=== PATIENT | female | born 1970 | race African-American/Black ===

== ENCOUNTER 2019-01-08 18:21 | Emergency (ER) | payer OTHER | END 2019-01-08 19:46 | disposition home or self-care (01) | LOC: FER 18:21 ==

== ENCOUNTER 2019-01-31 09:04 | Day surgery (SDC) | payer OTHER ==
[2019-01-30 17:50] VITALS: BMI 29.2
--- NOTE | 2019-01-31 09:58 | HP ---
[facility] - Chief Complaint Chief Complaint: This patient is admitted to treat irregular uterine bleeding and to remove uterine polyps. History of Present Illness: This patient recently experienced irregular uterine bleeding and on sonogram was noted to have uterine polyps. History Source: Patient Limitations to Obtaining History: No Limitations - Past Medical History Allergies/Adverse Reactions: Allergies Allergy/AdvReac Type Severity Reaction Status Date / Time No Known Allergies Allergy Verified 01/30/19 17:51 MANUFACTURING ENGINEERING DIRECTOR: Yes: Migraine Cardiovascular: No: AFIB, Aneurysm, Aortic Insufficiency, Aortic Stenosis, CAD, CHF, Deep Vein Thrombosis, HTN, Hyperlipdemia, LA, Mitral Insufficiency, Mitral Stenosis, Murmur, Pulmonary Hypertension, Other Pulmonary: No: Asthma, Bronchitis, Cancer, COPD, O2 Dependent, Pneumonia, Previously Intubated, Pulmonary Embolus, Pulmonary Fibrosis, Sleep Apnea, Other Gastrointestinal: Yes: Gastritis, GERD Hepatobiliary: No: Cirrhosis, Cholelithiasis, Cholecystitis, Choledocholithiasis , Hepatitis A, Hepatitis B, Hepatitis C, Other Renal/: No: Renal Failure, Renal Inusuff, BPH, Cancer, Hematuria, Hemodialysis , Neurogenic Bladder, Renal Calculi, UTI, Other ...LMP: 01/08/19 ...LMP Comment: IRREGULAR ...: No ...: 4 ...Para: 4 Heme/Onc: No: Anemia, B12 Deficiency, Bleeding Disorder, Cancer, Current Chemotherapy, Current Radiation Therapy, Hemochromatosis, Hypercoaguable State, Myeloproliferative Synd, Sickle Cell Disease, Sickle Cell Trait, Thrombocytopenia, Other Infectious Disease: No: AIDS, C-Diff, Herpes Zoster, HIV, MRSA, STD's, Tuberculosis, VREF, Other Musculoskeletal: No: Bursitis, Chronic low back pain, Hemiparesis, Hemiplegia, Osteoarthritis, Paraplegia, Other Rheumatology: No: Fibromyalgia, Gout, Lupus, Rheumatoid Arthritis, Sarcoidosis, Vasculitis, Other ENT: No: Allergic Rhinitis, Sinusitis, Other Endocrine: No: Warren's Disease, [place]'s Disease, Diabetes Insipidus, Diabetes Mellitus, Hyperparathyroidism, Hyperthyroidism, Hypothyroidism, Osteopenia, SIADH, Other Dermatology: No: Basal Cell, Cellulitis, Eczema, Melanoma, Psoriasis, Squamous Cell, Other (post BTL hx of uterine fibroids) - Current Medications Current Medications: Home Medications Medication Instructions Recorded Omeprazole [Prilosec] 20 mg PO PRN PRN 02/15/15 Satellite Physical Exam - Physical Examination General Appearance: Well Nourished, Well Developed, Alert & Oriented x3 ENT: Clear, No Discharge, No masses Lung: Clear to auscultation Heart: Regular rate & rhythm, Normal S1, Normal S2 Breasts: Soft, Non-Tender, No masses bilaterally Abdomen: Soft, No tenderness, No CVA Extremities: No edema, No tenderness/swelling Pelvic Exam: Within normal limits External Genitalia, Within normal limits Vagina, Within normal limits Cervix, Within normal limits Uterus, Within normal limits [place] Neu[facility]: Intact, Alert, Oriented Satellite Impression/Plan - Impression/Plan Impression: uterine polyps and irregular uterine bleeding Operative Procedure: hysteroscopy with D/C and polypectomy Date to be Performed: 01/31/19
[2019-01-31] MEDS ORDERED: ONDANSETRON 4 MG/2 ML VIAL IVPUSH PRN (10:05)
[2019-01-31] MEDS ORDERED: oxyCODONE HCL 5 MG TABLET PO PRN ×2 (10:05)
[2019-01-31] MEDS ORDERED: LACTATED RINGERS SOLUTION 1,000 ML IV SCH (10:15)
[2019-01-31] MEDS ORDERED: PROPOFOL 20 ML ONE (11:28)
[2019-01-31] MEDS ORDERED: MIDAZOLAM HCL 2 MG/2 ML SINGLE DOSE VIAL ONE (11:28)
[2019-01-31] MEDS ORDERED: KETOROLAC TROMETHAMINE 30 MG/1 ML VIAL ONE (11:57)
[2019-01-31] MEDS ORDERED: DEXAMETHASONE SOD PHOSPHATE 4 MG/1 ML VIAL ONE (11:57)
[2019-01-31] MEDS ORDERED: LIDOCAINE HCL/PF 2% SDV 5ML VIAL ONE (11:57)
--- NOTE | 2019-01-31 13:30 | OP ---
DATE OF OPERATION: 01/31/2019 PREOPERATIVE DIAGNOSES: Uterine polyps and irregular uterine bleeding. POSTOPERATIVE DIAGNOSES: Uterine polyps and irregular uterine bleeding. OPERATIVE PROCEDURE: Hysteroscopy, dilation and curettage, polypectomy. ESTIMATED BLOOD LOSS: Approximately 10 mL. DESCRIPTION OF PROCEDURE: The patient was brought to the operating room, placed in the supine position, given MAC anesthesia by the anesthesiologist, placed in the lithotomy position, prepped and draped in the usual manner. The uterus was noted to be retroverted. Adnexa negative. The uterus was slightly enlarged. The uterus was dilated to 9 cm. The cervix was then dilated to accommodate the hysteroscopy. Hysteroscopy was performed using the hysteroscope and the patient was noted to have endometrial polyps on the right fundal wall. The polyps were removed using a medium-sized curet. A D & C was also carried out of the endometrial cavity and an endocervical curettage was also done. The patient tolerated the procedure well. Hemostasis was good. The estimated blood loss was 10 mL. The patient went to the recovery room in good condition. AMBROSE NOLAN M.D. [id number]
[2019-01-31 15:06] VITALS: BP 128/75; PULSE 88
[2019-01-31 21:03] VITALS: TEMP 98.3
--- NOTE | 2019-02-02 11:37 | PATH ---
Surgical Pathology Report Patient Name: NATHALIA SOSA [facility]. Rec. #: [id number] /Age/Gender: 1970 (Age: 48) / F Account: [id number] Location: [facility] SURGICAL Taken: 01/31/2019 Received: 01/31/2019 Reported: 02/02/2019 Physicians: Armen Worley M.D. Specimen(s) Received A: ENDOMETRIAL CURETTINGS B: ENDOCERVICAL POLYP C: ENDOCERVICAL CURETTINGS Clinical History Irregular bleeding, uterine polyps Final Diagnosis A. ENDOMETRIUM, CURETTAGE: SECRETORY ENDOMETRIUM AND FRAGMENTS OF ENDOMETRIAL POLYP. BENIGN SQUAMOUS EPITHELIUM AND ENDOCERVICAL GLANDULAR TISSUE. B. ENDOMETRIUM, POLYP, POLYPECTOMY: ENDOMETRIAL POLYP AND SECRETORY ENDOMETRIUM. C. ENDOCERVIX, CURETTAGE: FRAGMENTS OF ENDOMETRIAL POLYP AND SCANT BENIGN ENDOCERVICAL GLANDULAR TISSUE. Electronically Signed Fabi Mack M.D. Gross Description A. Received in formalin labeled "endometrial curettings," is a 3.5 x 3.0 x 0.3 cm aggregate of red-brown soft tissue fragments admixed with blood clot. The formalin is filtered and the specimen is entirely submitted in 2 cassettes. B. Received in formalin labeled "endometrial polyp," is a 2.5 x 2.0 x 0.3 cm aggregate of barrientos pink soft tissue fragments. The formalin is filtered and the specimen is entirely submitted in one cassette. C. Received in formalin labeled "endocervical curettings," is a 0.5 x 0.3 x 0.1 cm aggregate of barrientos soft tissue fragments. The formalin is filtered and the specimen is entirely submitted in one cassette. /01/31/2019 [facility]01/31/2019
== END 2019-01-31 15:08 | disposition home or self-care (01) ==
LOC: JASU-SURG 09:04
PROVIDERS: ATTEND Obstetrics & Gynecology
PROC: 0UJD8ZZ Inspection of Uterus and Cervix, Via Natural or Artificial Opening Endoscopic (ICD-10-PCS; 2019-01-31)
PROC: 0UB97ZX Excision of Uterus, Via Natural or Artificial Opening, Diagnostic (ICD-10-PCS; principal; 2019-01-31 09:00)
PROC: 0UDB7ZX Extraction of Endometrium, Via Natural or Artificial Opening, Diagnostic (ICD-10-PCS; 2019-01-31 09:00)
DX: N93.9 Abnormal uterine and vaginal bleeding, unspecified (principal); N84.0 Polyp of corpus uteri
CPT/HCPCS: 36415; 84703; 86850; 86870; 86900; 86901; 86902; 88305-TC; 94760

== ENCOUNTER 2020-04-07 16:04 | Emergency (ER) | payer OTHER ==
--- NOTE | 2020-04-07 16:11 | PDOC ---
History of Present Illness - General Chief Complaint: Headache Stated Complaint: "SEVERE HEADACHE" Time Seen by Provider: 04/07/20 16:11 - History of Present Illness Initial Comments: HPI: 50yo F with PMH of migraines, GI ulcer sent by her primary care physician for evaluation of migraine x 1 day. Patient states her current headache feels like her usual headaches. Denies syncope or fall. Reports photosensitivity. Took three advil around 11am today with some relief, as headache is now rated 5/10. Used to follow with a neurologist, but not recently. Does not currently take any medications for her headache, but her primary care provider sent new prescriptions to her pharmacy. Patient does not know the name of these medicati ons. Stated she felt somewhat weak prior to this headache episode which she says she has felt previously when her "iron was low." No fevers, chills, chest pain, or shortness of breath. PCP: Dr. Irish Ibarra ROS: Constitutional: no fever, no chills HEENT: no throat pain, no dysphagia Cardiovascular: no chest pain, no palpitations Respiratory: no cough, no shortness of breath Gastrointestinal: no abdominal pain, no nausea Genitourinary: no dysuria, no hematuria Musculoskeletal: no myalgia, no arthralgia Skin: no rash, no itching Neurologic: +headache, +weakness Psych: no agitation, no anxiety PE: General: Awake, alert, and fully oriented, in no acute distress, has towel over her eyes Head: No signs of trauma Eyes: Sclera anicteric ENT: Moist mucus membranes Neck: Normal ROM, supple Lungs: Lungs clear, Normal breath sounds Cardio: Regular rhythm, S1 and S2 present Abdomen: Soft, nontender. No guarding, no rebound, no masses Extremities: Normal range of motion, Distal pulses present Skin: Warm, Dry, normal turgor Neurologic: Cranial nerves II through XII intact. Normal speech, sensation, strength, coordination, and gait. ED Course/MDM: DDX including but not limited to tension headache, ocular migraine, cluster headache, SAH, IIH, temporal arteritis Labs Fluids Reglan Ofirmev As patient states this is her usual pattern of headache and "this is how it always is," I have lowered suspicion for acute neurologic pathology Via shared decision making, patient declined CT Head Will reassess 04/07/20 16:11 CBC WBC 6.7 K/mm3 (4.0-10.8) 04/07/20 17:00 RBC 4.10 M/mm3 (3.60-5.2) 04/07/20 17:00 Hgb 10.8 GM/dl (10.7-15.3) 04/07/20 17:00 Hct 34.1 % (32.4-45.2) 04/07/20 17:00 MCV 83.1 fl (80-96) 04/07/20 17:00 MCH 26.4 pg (25.7-33.7) 04/07/20 17:00 MCHC 31.8 g/dl (32.0-36.0) L 04/07/20 17:00 RDW 15.8 % (11.6-15.6) H 04/07/20 17:00 Plt Count 376 K/MM3 (134-434) 04/07/20 17:00 MPV 8.4 fl (7.5-11.1) 04/07/20 17:00 Absolute Neuts (auto) 4.6 K/mm3 04/07/20 17:00 Neutrophils % 69.1 % (42.8-82.8) 04/07/20 17:00 Lymphocytes % 21.3 % (8-40) 04/07/20 17:00 Monocytes % 7.4 % (3.8-10.2) 04/07/20 17:00 Eosinophils % 1.1 % (0-4.5) 04/07/20 17:00 Basophils % 1.1 % (0-2.0) 04/07/20 17:00 No leukocytosis or anemia CMP Sodium 137 mmol/L (136-145) 04/07/20 17:00 Potassium 4.1 mmol/L (3.5-5.1) 04/07/20 17:00 Chloride 105 mmol/L (98-107) 04/07/20 17:00 Carbon Dioxide 24 mmol/L (21-32) 04/07/20 17:00 Anion Gap 8 MMOL/L (8-16) 04/07/20 17:00 BUN 15.0 mg/dl (7-18) 04/07/20 17:00 Creatinine 0.7 mg/dl (0.55-1.3) 04/07/20 17:00 Est GFR (CKD-EPI)AfAm 116.27 04/07/20 17:00 Est GFR (CKD-EPI)NonAf 100.32 04/07/20 17:00 Random Glucose 95 mg/dl (74-106) 04/07/20 17:00 Calcium 8.3 mg/dl (8.5-10) L 04/07/20 17:00 Total Bilirubin 0.3 mg/dl (0.2-1) 04/07/20 17:00 AST 26 U/L (15-37) 04/07/20 17:00 ALT 31 U/L (13-61) 04/07/20 17:00 Alkaline Phosphatase 80 U/L (45-117) 04/07/20 17:00 Total Protein 7.0 g/dl (6.4-8.2) 04/07/20 17:00 Albumin 3.8 g/dl (3.4-5.0) 04/07/20 17:00 Electrolytes unremarkable Normal Cr No transaminitis 04/07/20 18:16 Patient with improvement in headache Already has a neurology referral Her primary care physician sent prescriptions to her pharmacy 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 Return precautions Stable for discharge 04/07/20 18:50 Past History - Medical History Allergies/Adverse Reactions: Allergies Allergy/AdvReac Type Severity Reaction Status Date / Time No Known Allergies Allergy Verified 04/07/20 16:10 Home Medications: Ambulatory Orders Omeprazole [Prilosec] 20 mg PO PRN PRN 02/15/15 Anemia: No Asthma: No Cancer: No Cardiac Disorders: No CVA: No COPD: No CHF: No Dementia: No Diabetes: No GI Disorders: Yes (gastric ulcers) Disorders: No HTN: No Hypercholesterolemia: No Liver Disease: No Seizures: No Thyroid Disease: No - Surgical History Abdominal Surgery: No Appendectomy: Yes (EGD) Cardiac Surgery: No Cholecystectomy: No Lung Surgery: No Neurologic Surgery: No Orthopedic Surgery: No - Psycho-Social/Smoking History Smoking History: Current some day smoker Have you smoked in the past 12 months: Yes Number of Cigarettes Smoked Daily: 3 'Breaking Loose' booklet given: 01/08/19 ED Treatment Course - LABORATORY CBC & Chemistry Diagram: 04/07/20 17:00 04/07/20 17:00 Discharge - Discharge Information Problems reviewed: Yes Clinical Impression/Diagnosis: Migraine Qualifiers: Migraine type: unspecified Status migrainosus presence: without status migrainosus Intractability: not intractable Qualified Code(s): G43.909 - Migraine, unspecified, not intractable, without status migrainosus Condition: Stable - Follow up/Referral - Patient Discharge Instructions Patient Printed Discharge Instructions: DI for Migraine Additional Instructions: You came to the emergency department for a headache. Labs did not show acute pathology. You received medications while you were here which helped your headache improve. 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 You can also take [id number] tylenol for pain. Follow the instructions on the medication bottle. Make sure you do not take too much medicine. The maximum daily dose for tylenol is 4000mg/day. Your doctor already referred you to a neurologist. Call and make an appointment. Your care is not complete until you do so. Medical attention is required if: you experience persistent symptoms, worsening headache, have a seizure, or have focal numbness or weakness. If you think you are having an emergency, call for emergency medical services or present to the emergency department right away - Post Discharge Activity
[2020-04-07 16:20] VITALS: TEMP 98.1; BMI 29.8
[2020-04-07] MEDS ORDERED: METOCLOPRAMIDE HCL INJECTION 10 MG/2 ML VIAL IVPUSH ONE (16:36)
[2020-04-07] MEDS ORDERED: SODIUM CHLORIDE 1,000 ML IV STA (16:36)
[2020-04-07] MEDS ORDERED: ACETAMINOPHEN 1000 MG/100 ML VIAL (NON FORMULARY) IVPB ONE (16:37)
[2020-04-07] MEDS ORDERED: ACETAMINOPHEN INJECTION 100 ML IVPB ONE (16:40)
[2020-04-07] MEDS ORDERED: METOCLOPRAMIDE HCL INJECTION 10 MG/2 ML VIAL ONE (16:40)
--- NOTE | 2020-04-07 16:43 | PDOC ---
Attending Attestation - Resident Resident Name: Roger Arellanoth - ED Attending Attestation I have performed the following: I have examined & evaluated the patient, The case was reviewed & discussed with the resident, I agree w/resident's findings & plan, Exceptions are as noted - HPI HPI: 04/07/20 16:51 50y F hx of migraine headaches, ulcers, presents with complaint of headache x 2 days. Pts headache was gradual onset x 2 days, pounding, associated with photophobia and nbnb vomiting. Pt notes this is consistent with her prior migraine headaches, she use to get relief with motrin hwever she was taken off of it by her GI doctor due to ulcers. Pt denies any blurry/double vision, fever/chills, focal numbness/tingling/weakness. pt unclear of the triggers for her headache. denies any other complaints including cp, sob, abd pain, back pa ni, neck pain, mcmanus. - Physicial Exam PE: 04/07/20 17:20 exam: GENERAL: The patient is awake, alert, and fully oriented, Nontoxic - in no acute distress. HEAD: Normocephalic, atraumatic. NEUROLOGICAL: No facial assymetry, Normal speech, moving all 4 extremiteis spontaneously and symmetrically - Medical Decision Making 04/07/20 17:20 migraine headache, consistet with prior no concern for SAH as pt ntose h/a is exactly the same will treat supportively neuro intact will reassess 04/07/20 18:27 pt feeling improved will dc with outpatient fu return precautions were dsicused Discharge - Discharge Information Problems reviewed: Yes Clinical Impression/Diagnosis: Migraine Qualifiers: Migraine type: unspecified Status migrainosus presence: without status migrainosus Intractability: not intractable Qualified Code(s): G43.909 - Migraine, unspecified, not intractable, without status migrainosus Condition: Stable Disposition: HOME - Admission No - Follow up/Referral - Patient Discharge Instructions Patient Printed Discharge Instructions: DI for Migraine Additional Instructions: You came to the emergency department for a headache. Labs did not show acute pa thology. You received medications while you were here which helped your headache improve. 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 You can also take [id number] tylenol for pain. Follow the instructions on the medication bottle. Make sure you do not take too much medicine. The maximum daily dose for tylenol is 4000mg/day. Your doctor already referred you to a neurologist. Call and make an appointment. Your care is not complete until you do so. Medical attention is required if: you experience persistent symptoms, worsening headache, have a seizure, or have focal numbness or weakness. If you think you are having an emergency, call for emergency medical services or present to the emergency department right away - Post Discharge Activity
[2020-04-07 17:16] LABS: BASO % 1.1 % (0-2.0); EOS % 1.1 % (0-4.5); HEMATOCRIT 34.1 % (32.4-45.2); HEMOGLOBIN 10.8 GM/dl (10.7-15.3); LYMPH % 21.3 % (8-40); MCH 26.4 pg (25.7-33.7); MCHC 31.8 g/dl (32.0-36.0); MEAN CELL VOLUME 83.1 fl (80-96); MEAN PLT VOLUME 8.4 fl (7.5-11.1); MONO % 7.4 % (3.8-10.2); NEUT % 69.1 % (42.8-82.8); PLATELET COUNT 376 K/MM3 (134-434); RDW 15.8 % (11.6-15.6); WHITE BLOOD COUNT 6.7 K/mm3 (4.0-10.8)
[2020-04-07 17:20] LABS: ALBUMIN 3.8 g/dl (3.4-5.0); BILIRUBIN,TOTAL 0.3 mg/dl (0.2-1); CALCIUM 8.3 mg/dl (8.5-10); CREATININE 0.7 mg/dl (0.55-1.3); POTASSIUM 4.1 mmol/L (3.5-5.1)
[2020-04-07 18:35] VITALS: BP 127/87; PULSE 79
== END 2020-04-07 18:35 | disposition home or self-care (01) ==
LOC: FER 16:04
PROC: 3E0333Z Introduction of Anti-inflammatory into Peripheral Vein, Percutaneous Approach (ICD-10-PCS; principal; 2020-04-07)
PROC: 3E033GC Introduction of Other Therapeutic Substance into Peripheral Vein, Percutaneous Approach (ICD-10-PCS; 2020-04-07)
PROC: 3E0337Z Introduction of Electrolytic and Water Balance Substance into Peripheral Vein, Percutaneous Approach (ICD-10-PCS; 2020-04-07)
DX: G43.909 Migraine, unspecified, not intractable, without status migrainosus (principal)
CPT/HCPCS: 36415; 80053; 85025; 99284-25; J0131

== ENCOUNTER 2023-01-31 11:24 | Emergency (ER) | payer OTHER ==
[2023-01-31 11:34] VITALS: BP 128/78; PULSE 105; RESP 16; TEMP 98.8; BMI 27.9
[2023-01-31] MEDS ORDERED: MECLIZINE HCL 25 MG TABLET (FP) PO ONE (11:40)
[2023-01-31] MEDS ORDERED: MECLIZINE HCL 25 MG TABLET (FP) ONE (11:50)
== END 2023-01-31 12:10 | disposition home or self-care (01) ==
LOC: FER 11:24
DX: R42 Dizziness and giddiness (principal)
CPT/HCPCS: 93005; 99283-25